=== PATIENT | male | born 1975 | race American Indian/Alaskan Native ===

== ENCOUNTER 2022-10-05 10:10 | Outpatient (CLI) | payer OTHER, SELFPAY | END 2022-10-05 10:11 | disposition home or self-care (01) | PROVIDERS: Visit Provider Family Medicine | DX: Z00.00 Encounter for general adult medical examination without abnormal findings (principal); I10 Essential (primary) hypertension; E66.9 Obesity, unspecified; Z13.6 Encounter for screening for cardiovascular disorders | CPT/HCPCS: 80053; 80061 ==

== ENCOUNTER 2022-10-28 07:48 | Outpatient (CLI) | payer OTHER, SELFPAY | END 2022-10-28 07:49 | disposition home or self-care (01) | LOC: OP CLINIC 07:49 | PROVIDERS: PCP Family Medicine; Visit Provider Internal Medicine | DX: Z12.11 Encounter for screening for malignant neoplasm of colon (principal) | CPT/HCPCS: 99152; J2250; J3010 ==

== ENCOUNTER 2022-12-28 16:07 | Outpatient (CLI) | payer OTHER, SELFPAY | END 2022-12-28 16:08 | disposition home or self-care (01) | PROVIDERS: PCP Family Medicine; Visit Provider Family Medicine | DX: I10 Essential (primary) hypertension (principal) | CPT/HCPCS: 80048 ==

== ENCOUNTER 2023-01-17 15:00 | Outpatient (RCR) | payer OTHER, SELFPAY ==
--- NOTE | 2022-10-27 10:33 | OT.OPOE ---
OT Outpatient Ortho Eval OT Outpatient Ortho Eval* Start: 10/24/22 15:09 Freq: Status: Active Protocol: Document 10/24/22 15:09 CHARLIE (Rec: 10/24/22 15:49 CHARLIE [id number]) E-signed By Manisha Anton, OTR/L, CLT OT OP Ortho Eval Details Complexity Complexity Low Insurance Information Insurance Information [facility] History/Precautions Current Condition/Medical Diagnosis Referring Provider Dez Scherer PA-C Treatment Diagnosis L Lateral epicondylitis Date of Onset 9 months ago Other Precautions New Medication: losartan 50 mg PO QDAY Patient reports he doesn't take ibuprofen because it causes him to have heart burn- not taking any pain medications Medical Conditions HTN Other Conditions G47.30 - Sleep apnea, unspecified; GERD ( gastroesophageal reflux disease); Gastro-esophageal reflux disease without esophagitis; Depression, unspecified; Smoking Status: Current everyday smoker- pack a day. Having a colonoscopy on 10/26/22 Medical/Functional History Medical History Reviewed Yes Prior Level of Function/Mobility then engaged than when his fianc?e unexpectedly 12 years ago. He has 4-year-old daughter who he is not in contact with, 2 stepsons 21 and 30 years old. He lives alone but he does have a girlfriend. 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 Critical Job Demands Pull,Lift,Overhead Reach, Static Sitting Other Critical Job Demands Typing on the computer, sometimes driving a [email or web address] Hobbies Gardening, splitting wood, riding his motorcycle Fitness None Ortho Subjective Subjective Subjective When I dropped a cup of coffee out of my right hand, I told myself-that's it, I'm going to the doctor Pain Assessment Pain Present Pain Present Pain Reported Location L elbow Description Tightness,Chronic,Shooting Intensity 8 Range of Motion and Strength Shoulder Range of Motion and Strength Shoulder Range of Motion and Strength Full AROM Elbow/Forearm Range of Motion and Strength Elbow/Forearm Range of Motion and Patient has full ROM. Left and Strength Right UE are both equal with no restrictions. Pain level increases as supination increases past 80 degrees Wrist Range of Motion and Strength Wrist Range of Motion and Strength Full AROM Hand/Finger/Thumb Range of Motion and Strength Hand/Finger/Thumb Range of Motion and Patient was very surprised Strength that his L hand was much weaker than his R hand Hand Pinch/Firer Portable Boiler Strength Hand Right Firer Portable Boiler Strength Position 1 (lbs) 105 Firer Portable Boiler Strength Position 2 (lbs) 109 Lateral Pinch Strength (lbs) 35 Three Point Pinch (lbs) 29 Left Firer Portable Boiler Strength Position 1 (lbs) 25 Firer Portable Boiler Strength Position 2 (lbs) 21 Lateral Pinch Strength (lbs) 15 Three Point Pinch (lbs) 15 OT Problems Problems Problems Decreased Strength,Pain, Lifting,Gripping,Pinching Problems Comments Patient states that his pain is consistent-always 6/10 (at its best) and grows to 8/10 with activity. Patient stated that he will get bolts of pain when he does certain tasks and then it goes to 10/10 for a short period of time and then goes back down to 8/10. He reports that he has given up many hobbies due to his pain (unable to ride his motorcycle with friends due to his inability to manage the clutch). Other Problems Opening Containers,Computer Patient Potential Good Assessment Assessment Assessment Patient reports pain during palpation over the antecubital fossa; but nontender over the radial head. Highly tender with palpation over the lateral epicondyle/ ECRB tendon insertion but full AROM. Painful over the left lateral elbow with resisted wrist extension and resisted long digit extension. No impairment with sensation but patient reports dropping things out of his L hand-no noted edema at the wrist/ digits. Occupational Therapy Treatment Plan - OP Potential Rehabilitation Potential Good Set Goals Goals Set with Patient Yes Goals Goals 1. Patient will report a decrease in L elbow pain during daytime activities from 8/10 to less than 5/10 2. Patient will adhere to HEP for left elbow 4-5x/week Independently 3. Patient will increase chemistry faculty member strength in the L hand from 25 lbs to >35 lbs without increased pain symptoms. 4. Patient will increase L hand pinch from 15 lbs to >20 lbs without increased pain symptoms. Treatment Plan Treatment Plan Evaluation,Iontophoresis,Joint Mobilization,Manual Therapy, Ultrasound,Therapeutic Exercise Expected Frequency 1-2x Week Expected Frequency Comments 2 sessions a week for 8 weeks Expected Duration 6-8 Weeks Expected Duration Comments May be able to switch to 1x/ week after pain levels decrease and patient is Independent with his HEP Home Program Home Program Home Program Initiated Home Program Specifics Wrist/forearm strengthening handout provided to patient as well as stretching handout Certification Certification I Certify That: Therapy Services Provided, Therapy Plan Established, Therapy Plan Reviewed
--- NOTE | 2022-10-27 10:34 | OT.OPOE ---
OT Outpatient Ortho Eval OT Outpatient Ortho Eval* Start: 10/24/22 15:09 Freq: Status: Active Protocol: Document 10/24/22 15:09 CHARLIE (Rec: 10/24/22 15:49 CHARLIE [id number]) E-signed By Manisha Anton, OTR/L, CLT OT OP Ortho Eval Details Complexity Complexity Low Insurance Information Insurance Information [facility] Out[facility] History/Precautions Current Condition/Medical Diagnosis Referring Provider Dez Scherer PA-C Treatment Diagnosis L Lateral epicondylitis Date of Onset 9 months ago Other Precautions New Medication: losartan 50 mg PO QDAY Patient reports he doesn't take ibuprofen because it causes him to have heart burn- not taking any pain medications Medical Conditions HTN Other Conditions G47.30 - Sleep apnea, unspecified; GERD ( gastroesophageal reflux disease); Gastro-esophageal reflux disease without esophagitis; Depression, unspecified; Smoking Status: Current everyday smoker- pack a day. Having a colonoscopy on 10/26/22 Medical/Functional History Medical History Reviewed Yes Prior Level of Function/Mobility then engaged than when his fianc?e unexpectedly 12 years ago. He has 4-year-old daughter who he is not in contact with, 2 stepsons 21 and 30 years old. He lives alone but he does have a girlfriend. 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 Patient likes to stay busy-completely Indep with all ADLs/IADLs Social History Employment Status [employer] Employed Critical Job Demands Pull,Lift,Overhead Reach, Static Sitting Other Critical Job Demands Typing on the computer, sometimes driving a [email or web address] Hobbies Gardening, splitting wood, riding his motorcycle Fitness None Ortho Subjective Subjective Subjective When I dropped a cup of coffee out of my right hand, I told myself-that's it, I'm going to the doctor Pain Assessment Pain Present Pain Present Pain Reported Location L elbow Description Tightness,Chronic,Shooting Intensity 8 Range of Motion and Strength Shoulder Range of Motion and Strength Shoulder Range of Motion and Strength Full AROM Elbow/Forearm Range of Motion and Strength Elbow/Forearm Range of Motion and Patient has full ROM. Left and Strength Right UE are both equal with no restrictions. Pain level increases as supination increases past 80 degrees Wrist Range of Motion and Strength Wrist Range of Motion and Strength Full AROM Hand/Finger/Thumb Range of Motion and Strength Hand/Finger/Thumb Range of Motion and Patient was very surprised Strength that his L hand was much weaker than his R hand Hand Pinch/Marketing Secretary Strength Hand Right Marketing Secretary Strength Position 1 (lbs) 105 Marketing Secretary Strength Position 2 (lbs) 109 Lateral Pinch Strength (lbs) 35 Three Point Pinch (lbs) 29 Left Marketing Secretary Strength Position 1 (lbs) 25 Marketing Secretary Strength Position 2 (lbs) 21 Lateral Pinch Strength (lbs) 15 Three Point Pinch (lbs) 15 OT Problems Problems Problems Decreased Strength,Pain, Lifting,Gripping,Pinching Problems Comments Patient states that his pain is consistent-always 6/10 (at its best) and grows to 8/10 with activity. Patient stated that he will get bolts of pain when he does certain tasks and then it goes to 10/10 for a short period of time and then goes back down to 8/10. He reports that he has given up many hobbies due to his pain (unable to ride his motorcycle with friends due to his inability to manage the clutch). Other Problems Opening Containers,Computer Patient Potential Good Assessment Assessment Assessment Patient reports pain during palpation over the antecubital fossa; but nontender over the radial head. Highly tender with palpation over the lateral epicondyle/ ECRB tendon insertion but full AROM. Painful over the left lateral elbow with resisted wrist extension and resisted long digit extension. No impairment with sensation but patient reports dropping things out of his L hand-no noted edema at the wrist/ digits. Occupational Therapy Treatment Plan - OP Potential Rehabilitation Potential Good Set Goals Goals Set with Patient Yes Goals Goals 1. Patient will report a decrease in L elbow pain during daytime activities from 8/10 to less than 5/10 2. Patient will adhere to HEP for left elbow 4-5x/week Independently 3. Patient will increase produce inspector strength in the L hand from 25 lbs to >35 lbs without increased pain symptoms. 4. Patient will increase L hand pinch from 15 lbs to >20 lbs without increased pain symptoms. Treatment Plan Treatment Plan Evaluation,Iontophoresis,Joint Mobilization,Manual Therapy, Ultrasound,Therapeutic Exercise Expected Frequency 1-2x Week Expected Frequency Comments 2 sessions a week for 8 weeks Expected Duration 6-8 Weeks Expected Duration Comments May be able to switch to 1x/ week after pain levels decrease and patient is Independent with his HEP Home Program Home Program Home Program Initiated Home Program Specifics Wrist/forearm strengthening handout provided to patient as well as stretching handout Certification Certification I Certify That: Therapy Services Provided, Therapy Plan Established, Therapy Plan Reviewed
--- NOTE | 2022-12-07 17:36 | OT.OPODN ---
OT Outpatient Ortho Daily Note OT Outpatient Ortho Daily Note* Start: 10/24/22 15:09 Freq: Status: Active Protocol: Document 12/07/22 17:17 INO (Rec: 12/07/22 17:35 INO [id number]) E-signed By Mariam Bartholomew, OTR/L, CLT Type of Note Type of Note Type of Note Daily Note,Note to MD,Recert/ Progress Note Visit Number 12 Insurance Information Insurance Information [facility] Outpatient History/Precautions Current Condition/Medical Diagnosis Referring Provider Dez Scherer PA-C Treatment Diagnosis L Lateral epicondylitis Date of Onset 9 months ago Other Precautions New Medication: losartan 50 mg PO QDAY Patient reports he doesn't take ibuprofen because it causes him to have heart burn- not taking any pain medications Medical Conditions HTN Other Conditions G47.30 - Sleep apnea, unspecified; GERD ( gastroesophageal reflux disease); Gastro-esophageal reflux disease without esophagitis; Depression, unspecified; Smoking Status: Current everyday smoker- pack a day. Having a colonoscopy on 10/26/22 Medical/Functional History Medical History Reviewed Yes Prior Level of Function/Mobility then engaged than when his fianc?e unexpectedly 12 years ago. He has 4-year-old daughter who he is not in contact with, 2 stepsons 21 and 30 years old. He lives alone but he does have a girlfriend. 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 Has pn in ulnar nerve pos 3-4 transition (FA rotations in TEF to FAYE), and pos 6 with WR EX of ulnar nn glide at the start of session 07/01 pain. Gripping still elicits pain in elbow flexed and extended positions. Has not been able to ride his motorcycle or use his bow yet, in preparation for his deer hunting season this fall. Pain Assessment Pain Present Pain Present Pain Reported Location L elbow Description Tightness,Chronic,Shooting Intensity 4 OT OP Daily Ortho Note/Assessment Therapeutic Exercise Therapeutic Exercise Minutes (minutes) 8 Therapeutic Exercise Comments Added Closed chain bow drawing simulation with L fist on wall, R hand drawing on green looped therapy band. 5 rep sets working up to 10 to 20 to 30 reps carefully. Manual Therapy Manual Therapy Minutes (minutes) 35 Manual Therapy Comments With pt in supine on table, OTR continues STM to mobilize soft tissue surrounding joint capsule, ligament structures and muscle groups to support freedom of movement and healing of structures, banded/ taut at brachialis, nodular gritty and spongy texture at lower 1/3 triceps to insert, spiral groove, and wr extensor, flexor muscle bulk. Applied gentle, partial arc SNAG's (UE traction while doing ulnar nn glides guided in supported plane by OTR, care of keeping pn at mild + level or better), pin and stretch techniques with EL EX, UD/RD, supination pronation and neutral chops in TEF 120- 130 arc. Elbow hinging blocked for inner elbow mobilization in gilding motions for EL FL in supination/pronated and neutral positions. K Tape still intact at triceps margins w I tape space correction over ulna groove/ medial epicondyle. Ultrasound Ultrasound Comments Ultrasound d/c as it makes pn worse Total Occupational Therapy Time Occupational Therapy Minutes 43 Home Program Home Program Home Program Initiated Home Program Specifics 11/30/22-- bow draws with L UE supported. 11/09/22 C clamp pin and stretch with triceps FAYE/TEF, serratus karla lifts with green band ( L solo per R SH PN) 11/07/22-- Wall SH FL/EX slides (possibly horizontal codman's ). 10/31/22-- ulnar nn glides WR stretches in EL FL NN protection position. 10/24/22-- Wrist/forearm strengthening handout provided to patient as well as stretching handout Range of Motion and Strength Shoulder Range of Motion and Strength Shoulder Range of Motion and Strength Full AROM Elbow/Forearm Range of Motion and Strength Elbow/Forearm Range of Motion and Patient has full ROM. Left and Strength Right UE are both equal with no restrictions. Pain level increases as supination increases past 80 degrees Wrist Range of Motion and Strength Wrist Range of Motion and Strength Full AROM Hand/Finger/Thumb Range of Motion and Strength Hand/Finger/Thumb Range of Motion and Patient was very surprised Strength that his L hand was much weaker than his R hand Hand Pinch/Environmental Lead Strength Hand Right Environmental Lead Strength Position 1 (lbs) 100 Environmental Lead Strength Position 2 (lbs) 118 Lateral Pinch Strength (lbs) 37 Three Point Pinch (lbs) 25 Left Environmental Lead Strength Position 1 (lbs) 50 Environmental Lead Strength Position 2 (lbs) 45 Lateral Pinch Strength (lbs) 32 Three Point Pinch (lbs) 25 Comments Comments 12/07/22-- wind farm operations manager is EL FL is 50 # L with 8/10 deep olecranon pn. with FAYE, improves to 45# today, similar pn pattern, . MMT for shoulder and elbow planes 5/5 BUE. L UE 5/ 5 MMT for wrist ex, RD, UD and supination. Pn 6/10 deep olecranon with wrist extension and pronation. As of 12/05/22-- Environmental Lead improved R 100# in EL FL, L is 75# (3/ 10 deep olecranon tenderness) in pos 2 / EL EX, cutting and creasing press operator is 118# R and 38# L (10/10 sharp deep olecranon tenderness). Martínez pinch is 37# R and 32# L ( 3/10 deep olecranon tenderness ) and 3 pt pinch is 25# R and L (3/10 deep olecranon tenderness). OT Problems Problems Problems Decreased Strength,Pain, Lifting,Gripping,Pinching Problems Comments Patient states that his pain is consistent-always 6/10 (at its best) and grows to 8/10 with activity. Patient stated that he will get bolts of pain when he does certain tasks and then it goes to 10/10 for a short period of time and then goes back down to 8/10. He reports that he has given up many hobbies due to his pain (unable to ride his motorcycle with friends due to his inability to manage the clutch). Other Problems Opening Containers,Computer Patient Potential Good Assessment Assessment Assessment Decreased pn to 1/10 after session, more comfortable with all planes of ulnar nn glide, tape and mobilizations really helpful. Flare ups from weekend cooking/yard tasks tend to flare pt up between sessions. Encouraged to add gentle bow simulation tasks. At eval--Pato reports pain during palpation over the antecubital fossa; but nontender over the radial head . Highly tender with palpation over the lateral epicondyle/ ECRB tendon insertion but full AROM. Painful over the left lateral elbow with resisted wrist extension and resisted long digit extension. No impairment with sensation but patient reports dropping things out of his L hand-no noted edema at the wrist/ digits. Occupational Therapy Treatment Plan - OP Potential Rehabilitation Potential Good Set Goals Goals Set with Patient Yes Goals Goals 1. Patient will report a decrease in L elbow pain during daytime activities from 8/10 to less than 5/10 2. Patient will adhere to HEP for left elbow 4-5x/week Independently 3. Patient will increase cutting and creasing press operator strength in the L hand from 25 lbs to >35 lbs without increased pain symptoms. 4. Patient will increase L hand pinch from 15 lbs to >20 lbs without increased pain symptoms. Treatment Plan Treatment Plan Evaluation,Iontophoresis,Joint Mobilization,Manual Therapy, Ultrasound,Therapeutic Exercise Expected Frequency 1-2x Week Expected Frequency Comments 2 sessions a week for 8 weeks Expected Duration 6-8 Weeks Expected Duration Comments May be able to switch to 1x/ week after pain levels decrease and patient is Independent with his HEP Occupational Therapy Billing Units Treatment Minutes Timed Treatment Minutes 43 Total Treatment Minutes 43 Billing Units Manual Therapy 2 Therapeutic Exercise 1 Certification Certification I Certify That: Therapy Services Provided, Therapy Plan Established, Therapy Plan Reviewed Recertification Information Recertification Information Initial Certification Date 10/24/22 Recertification Due Date 01/24/23 Provider Signature Shows Agreement With POC & Medical Necessity Physician Comment/Change Comment or Changes Physician NPI Number # 12/07/22-- Dear Dez Scherer-- I am noticing that Pato has no further Ortho follow ups scheduled with you. Pt does plan to return with OT after a 2 week break ~12/19/22. Given he has continued symptoms and slow but steady improvement, you might want to check in on next steps for him. Glad to work with him! Thanks for the referral. Please feel free to call me if you have questions-- Sincerely-- Mariam Bartholomew, OTR/l CLT [phone].
== END 2023-05-17 23:59 | disposition home or self-care (01) ==
PROVIDERS: PCP Family Medicine; Visit Provider Physician Assistant Surgical
DX: M77.12 Lateral epicondylitis, left elbow (principal); Z51.89 Encounter for other specified aftercare
CPT/HCPCS: 97035; 97110; 97140; 97165; X5282

== ENCOUNTER 2023-01-25 16:02 | Outpatient (CLI) | payer OTHER, SELFPAY | END 2023-01-25 16:03 | disposition home or self-care (01) | LOC: NFLDREF 16:03 | PROVIDERS: PCP Family Medicine; Visit Provider Family Medicine | DX: I10 Essential (primary) hypertension (principal) | CPT/HCPCS: 80048 ==

== ENCOUNTER 2024-04-04 07:40 | Outpatient (CLI) | payer OTHER, SELFPAY | END 2024-04-04 07:41 | disposition home or self-care (01) | LOC: NFLDREF 11:51 | PROVIDERS: PCP Family Medicine; Referring Provider Family Medicine; Visit Provider Family Medicine | DX: E78.5 Hyperlipidemia, unspecified (principal); I10 Essential (primary) hypertension | CPT/HCPCS: 80053; 80061 ==

== ENCOUNTER 2024-05-07 07:52 | Outpatient (CLI) | payer OTHER, SELFPAY ==
--- NOTE | 2024-05-07 09:34 | P.ANES_ITS ---
Anesthesia Charges Start Date/Time Anesthesia Start Date: 05/07/24 Anesthesia Start Time: 09:00 Stop Date/Time Anesthesia Stop Date: 05/07/24 Anesthesia Stop Time: 09:35 Coding CPT Codes CPT Codes: ANES UPR GI NDSC PX NOS - 45828 ([id number]) P3 - PATIENT W/SEVERE SYS DISEASE, QK - CLINICAL TRIAL HEAD 2-4 CNCRNT ANES PROC, QX - PAPER COLORER SVC W/ MD MED DIRECTION
--- NOTE | 2024-05-07 09:34 | W.ANESCHARGE ---
Anesthesia Charges Start Date/Time Anesthesia Start Date: 05/07/24 Anesthesia Start Time: 09:00 Stop Date/Time Anesthesia Stop Date: 05/07/24 Anesthesia Stop Time: 09:35 Coding CPT Codes CPT Codes: ANES UPR GI NDSC PX NOS - 49016 ([id number]) P3 - PATIENT W/SEVERE SYS DISEASE, QK - DIE CUTTER OPERATOR 2-4 CNCRNT ANES PROC, QX - DIRECT MARKETING ANALYST SVC W/ MD MED DIRECTION
--- NOTE | 2024-05-07 09:38 | P.ANES_ITS ---
Anesthesia Charges Start Date/Time Anesthesia Start Date: 05/07/24 Anesthesia Start Time: 09:00 Stop Date/Time Anesthesia Stop Date: 05/07/24 Anesthesia Stop Time: 09:35 Coding CPT Codes CPT Codes: ANES UPR GI NDSC PX NOS - 30342 ([id number]) P3 - PATIENT W/SEVERE SYS DISEASE, QX - PETROLEUM REFINING FIRER SVC W/ MD MED DIRECTION, QK - LUBRICATING MACHINE TENDER 2-4 CNCRNT ANES PROC
--- NOTE | 2024-05-07 09:38 | W.ANESCHARGE ---
Anesthesia Charges Start Date/Time Anesthesia Start Date: 05/07/24 Anesthesia Start Time: 09:00 Stop Date/Time Anesthesia Stop Date: 05/07/24 Anesthesia Stop Time: 09:35 Coding CPT Codes CPT Codes: ANES UPR GI NDSC PX NOS - 54393 ([id number]) P3 - PATIENT W/SEVERE SYS DISEASE, QX - PHYSICIAN OFFICE SPECIALIST SVC W/ MD MED DIRECTION, QK - POLYETHYLENE BAG MACHINE OPERATOR 2-4 CNCRNT ANES PROC
== END 2024-05-07 07:53 | disposition home or self-care (01) ==
LOC: OP CLINIC 07:54
PROVIDERS: PCP Family Medicine; Visit Provider Surgery
DX: R13.10 Dysphagia, unspecified (principal); K44.9 Diaphragmatic hernia without obstruction or gangrene
CPT/HCPCS: 00731; 43239; 88305; J2704; J3490

== ENCOUNTER 2024-05-16 16:43 | Outpatient (CLI) | payer OTHER, SELFPAY | END 2024-05-16 16:44 | disposition home or self-care (01) | LOC: AMB 06-07 11:11 | PROVIDERS: PCP Family Medicine; Visit Provider Emergency Medicine Emergency Medical Services | DX: R07.9 Chest pain, unspecified (principal) | CPT/HCPCS: A0425; A0427 ==

== ENCOUNTER 2024-05-16 17:29 | Emergency (ER) | payer OTHER, SELFPAY ==
[2024-05-16 17:35] VITALS: BP 142/93; PULSE 80; RESP 18; TEMP 36.6; O2SAT 95; BMI 43.9
--- NOTE | 2024-05-16 19:07 | CRLHL7_ITS ---
For Patients: As a result of the Century Cures Act, medical imaging exams and procedure reports are released immediately into your electronic medical record. You may view this report before your referring provider. If you have questions, please contact your health care provider. INDICATION: Severe back pain. COMPARISON: None. TECHNIQUE: Noncontrast CT lumbar spine. FINDINGS: Normal vertebral body alignment. No acute fractures. No vertebral body loss of height. No spondylolisthesis. Multilevel small Schmorl`s nodes. No fractures visualized lower ribs. No sacral fractures. T12-L1 L1-2 L2-3: No spinal canal neural foraminal narrowing. L3-4: No spinal canal neural foraminal narrowing. L4-5: No spinal canal or neural foraminal narrowing. L5-S1: Disc degeneration loss disc height. Posterior disc bulge. No narrowing of the spinal canal. No impingement of the traversing S1 nerve roots. Mild right and moderate left neural foraminal narrowing. Degenerative changes visualized SI joints. Scattered vascular calcifications. Normal paraspinal soft tissues. IMPRESSION: 1. Normal limits. No acute fractures. 2. At L5-S1, disc degeneration. Posterior disc bulging. No narrowing of the spinal canal. Mild right and moderate left neural foraminal narrowing. Please note that all CT scans at this facility use dose modulation, iterative reconstruction, and/or weight-based dosing when appropriate to reduce radiation dose to as low as reasonably achievable. Dictated by Matthew Cannon MD @ 05/16/2024 7:47:36 PM (Electronically Signed)
--- NOTE | 2024-05-16 19:08 | ED.BACK ---
HPI - Back Pain/Injury General Chief Complaint: Back Injury/Pain Stated Complaint: back pain Time Seen by Provider: 05/16/24 18:44 History of Present Illness HPI Narrative: This 48-year-old male comes in reporting severe low back pain that began yesterday. 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 He went into urgent care yesterday and received a prescription for a muscle relaxant and 3 tablets of prednisone. He states that he does not have pain radiating down either leg. He states that he gets episodes of severe pain where it is difficult for him to breathe. Related Data Previous Rx's ?Medication ?Instructions ?Recorded bupropion HCl 150 mg tablet,12 hr 150 mg PO BID #180 tabs 02/29/24 sustained-release amlodipine 10 mg tablet 10 mg PO QDAY #90 tabs 04/08/24 chlorthalidone 25 mg tablet 25 mg PO QDAY #90 tabs 04/08/24 losartan 100 mg tablet 100 mg PO QDAY #90 tabs 04/08/24 sildenafil 50 mg tablet 25 - 100 mg (0.5 - 2 x 50 mg) PO 04/08/24 QDAY PRN sexual activity #30 tabs cyclobenzaprine 5 mg tablet 5 - 10 mg (1 - 2 x 5 mg) PO TID 05/15/24 PRN muscle spasm #20 tabs prednisone 20 mg tablet 20 mg PO QDAY 3 days #3 tabs 05/15/24 methylprednisolone 4 mg tablets in See Rx Instructions PO .COMPLEX 05/16/24 a dose pack (Medrol ([place])) #21 ea Allergies Allergy/AdvReac Type Severity Reaction Status Date / Time No Known Drug Allergies Allergy Verified 05/16/24 17:41 Review of Systems Status of ROS: Reports: 10 or more systems reviewed and unremarkable except as noted in History and below Narrative: Constitutional: No fevers, no weight gain or loss. Eyes: No discharge. No vision changes. HENT: No congestion, no sore throat, no ear pain. Cardiovascular: No chest pain, no palpitations. Respiratory: No shortness of breath, no wheezes, no cough. Gastrointestinal: No abdominal pain, no vomiting, no diarrhea. Genitourinary: No dysuria, no hematuria. Musculoskeletal: Low back pain as described above. Skin: No rashes, no pruritis. Neurological: No dizziness, weakness, sensory change, speech change. Endo/Heme/Allergies: No bruising or bleeding. No polydipsia. Pysch: no suicidality, no anxiety, no insomnia. All other systems reviewed and are negative. [facility] Medical History Sleep apnea ?G47.30 - Sleep apnea, unspecified (ICD-10) GERD (gastroesophageal reflux disease) ?K21.9 - Gastro-esophageal reflux disease without esophagitis (ICD-10) Depression ?F32.A - Depression, unspecified (ICD-10) Surgical History Hx of tonsillectomy ?Z90.89 - Acquired absence of other organs (ICD-10) Social History (Updated 04/08/24 @ 08:13 by Gabbi Rawls~[facility], [facility]) What is your current living situation?: I presently have a place to live Problems where you live: no known problems In the past 12 months, utilities in danger of being shut off: no In past 12 months, lack of transportation kept you from medical appts, meetings, work, or getting things needed for daily living: no In the past 12 mos, have been you worried that your food would run out before you had money to buy more?: never true In the past 12 mos, the food you bought just didn't last and you didn't have money to buy more?: never true Smoking Status: Current every day smoker How often does anyone, including family, friends and others, physically hurt you: never How often does anyone, including family, friends and others, insult or talk down to you: never How often does anyone, including family, friends and others, threaten you with harm: never How often does anyone, including family, friends and others, scream or curse at you: never Exam Narrative: Exam Narrative: Constitutional: Well-developed, well-nourished, no acute distress. HEENT: Normocephalic, atraumatic. Neck: Normal range of motion. Nontender. Supple. Heart: Intact distal pulses. Lungs: No chest discomfort. No wheezes, rhonchi, or rales. Abdomen: Nontender. Back: Pain located in the low back. As I palpated down along his spine he had an episode of severe pain in the low back. Extremities: Normal range of motion. No injury. Skin: Intact. No rash. Warm. No erythema or pallor. Neurologic: No altered sensation. No weakness. Alert and oriented. Psychiatric: No suicidality. No anxiety or depression. No insomnia. Nursing notes and vitals signs are reviewed. Const: Vital Signs, click to edit/add: Vital Signs - 24 hr 05/16/24 17:35 Temperature 97.9 F Pulse Rate [Right Pulse Oximeter] 80 Respiratory Rate 18 Blood Pressure [Ri ght Upper Arm] 142/93 H Pulse Oximetry 95 Oxygen Delivery Me thod Room Air Course Vital Signs Vital signs: Initial Vital Signs Temperature 97.9 F 05/16/24 17:35 Temperature Source Temporal Artery Scan 05/16/24 17:35 Pulse Rate 80 05/16/24 17:35 Pulse Rhythm Regular 05/16/24 17:35 Respiratory Rate 18 05/16/24 17:35 Blood Pressure 142/93 H 05/16/24 17:35 Blood Pressure Mean 109 H 05/16/24 17:35 Blood Pressure Position Sitting 05/16/24 17:35 Pulse Oximetry 95 05/16/24 17:35 Oxygen Delivery Method Room Air 05/16/24 17:35 Vital Signs Temperature 97.9 F 05/16/24 17:35 Pulse Rate 80 05/16/24 17:35 Respiratory Rate 18 05/16/24 17:35 Blood Pressure 142/93 H 05/16/24 17:35 Pulse Oximetry 95 05/16/24 17:35 Oxygen Delivery Method Room Air 05/16/24 17:35 Temperature 97.9 F 05/16/24 17:35 Pulse Rate 80 05/16/24 17:35 Respiratory Rate 18 05/16/24 17:35 Blood Pressure 142/93 H 05/16/24 17:35 Pulse Oximetry 95 05/16/24 17:35 Oxygen Delivery Method Room Air 05/16/24 17:35 Medications Administered Medications: Generic Name Dose Route Start Last Admin Trade Name Freq PRN Reason Stop Dose Admin Morphine Sulfate 10 mg 05/16/24 19:07 05/16/24 19:29 Morphine 10 Mg/Ml Inj IM 05/16/24 19:08 10 mg ONCE ONE Administration MDM - Back Pain/Injury MDM Narrative Medical decision making narrative: This patient has low back pain as described above. When I examined his back and palpate along his spine there was a certain area of point tenderness that triggered severe pain and cause laryngeal spasm where he had stridorous breathing in reaction to the severe pain. His pain is not radiating down either leg. There was no mechanism of injury to bring about these symptoms however he does have history of back aches and pains and frequently is lifting objects. He states that he has not had anything like this in the past. CT scan of the lumbar spine is obtained and shows some degenerative changes and some decreased height of the vertebral body at L5-S1. The patient did receive an intramuscular injection of morphine 10 mg. This brought some improvement to his symptoms. He is not taking any medicine for pain. I did prescribe Instymed doses of Toradol and [place]. He understands that we will not refill the [place] will. He also received prescriptions from [facility] for Flexeril. Additionally a Medrol Dosepak is provided from his preferred pharmacy. Discharge Plan Discharge Clinical Impression: Low back pain Patient Disposition: Home, Self-Care Condition: Stable Additional Instructions: Take medication as prescribed and needed. Activity as tolerated. [facility] for [facility]. Call [phone] for appointment. Return if worsening. Prescriptions: New methylprednisolone [Medrol ([place])] 4 mg tablets,dose pack See Rx Instructions .ROUTE .COMPLEX Qty: 21 0RF Rx Instructions: orally per package directions No Action cyclobenzaprine 5 mg tablet 5 - 10 mg PO TID PRN (Reason: muscle spasm) Qty: 20 0RF prednisone 20 mg tablet 20 mg PO QDAY 3 Days Qty: 3 0RF bupropion HCl 150 mg tablet sustained-release 12 hr 150 mg PO BID Qty: 180 3RF Rx Instructions: AM dose only for 1st 3 days. 2nd dose before 6pm. amlodipine 10 mg tablet 10 mg PO QDAY Qty: 90 3RF chlorthalidone 25 mg tablet 25 mg PO QDAY Qty: 90 3RF losartan 100 mg tablet 100 mg PO QDAY Qty: 90 3RF sildenafil 50 mg tablet 25 - 100 mg PO QDAY PRN (Reason: sexual activity) Qty: 30 5RF Rx Instructions: administer 30 minutes to 4 hours before activity Follow Up/Referrals: Angel Urbina MD [Primary Care Provider] - Stand Alone Forms: [facility] Info Instructions
[2024-05-16] MEDS: MORPHINE 10 MG/ML inj IM (19:29)
== END 2024-05-16 20:17 | disposition home or self-care (01) ==
PROVIDERS: Emergency Provider Emergency Medicine Emergency Medical Services; PCP Family Medicine
DX: M54.50 Low back pain, unspecified (principal)
CPT/HCPCS: 72131; 96372; 99283; 99284; J2270